=== PATIENT | male | born 1955 | race Caucasian/White ===

== ENCOUNTER 2016-08-20 14:11 | Inpatient (IN) | payer OTHER ==
[2016-08-20] MEDS ORDERED: SODIUM CHLORIDE 0.9% 500 ML IV STA (17:08)
[2016-08-20] MEDS ORDERED: MORPHINE SULFATE 2 MG/ML SYRINGE IVP STA (17:08)
[2016-08-20 18:15] LABS: Calcium 9.8 mg/dL (8.4-10.2); Total Bilirubin 1.2 mg/dL (0.2-1.3); Total Protein 5.7 g/dL (6.3-8.2)
[2016-08-20 18:18] LABS: CH 26.8; CHCM 35.1; HCT 29.8 % (39.0-53.0); HDW 2.99; Immature Gran Flag Slight; MCH 25.7 pg (25.0-35.0); MCHC 33.6 g/dL (31.0-37.0); MCV 76.5 fL (80.0-100.0); Mean Platelet Volume 7.2; Microcytosis Slight; RBC 3.89 m/uL (4.30-5.90); RDW 14.9 % (11.5-15.5); WBC (Perox) 46.69
[2016-08-20 18:20] LABS: WBC 44.3 k/uL (3.8-10.6)
[2016-08-20 18:22] LABS: Potassium 6.4 mmol/L (3.5-5.1)
[2016-08-20] MEDS ORDERED: LEVOFLOXACIN 750MG-D5W PMX 750 MG in DEXTROSE/WATER 1 150ML.BAG IVPB STA ×2 (18:25→22:17)
[2016-08-20 18:38] LABS: Appearance,Urine Turbid (Clear); Bacteria,Urine Many /hpf; Bilirubin,Urine Negative (Negative); Glucose,Urine (UA) Negative (Negative); Ketones,Urine Negative (Negative); Leukocyte Esterase,Urine Large (Negative); Nitrite,Urine Negative (Negative); PH, Urine 5.5 (5.0-8.0); Particle Count 18861; Protein,Urine 1+ (Negative); RBC,Urine 23 /hpf (0-5); Specific Gravity,Urine 1.013 (1.001-1.035); UA Billing (MACRO vs. MICRO) MICRO; WBC,Urine >182 /hpf (0-5)
[2016-08-20 18:54] LABS: Add Differential Manual Differential
[2016-08-20 18:55] LABS: Nucleated Red Blood Cells 0 /100 WBC (0-0); Polychromasia Present; Total Cells Counted 100
--- NOTE | 2016-08-20 18:55 | XR ---
EXAMINATION TYPE: XR KUB DATE OF EXAM: 08/20/2016 6:20 PM COMPARISON: 08/06/2016 HISTORY: Nausea and dizziness TECHNIQUE: 2 views FINDINGS: There is no sign of intestinal obstruction or pneumoperitoneum. Fecal pattern is normal. Th ere is mild linear density at the left lung base. There are no pathologic calcifications over the kid neys. IMPRESSION: Mild pleural reaction at the left lung base. No change compared to last exam.
[2016-08-20] MEDS ORDERED: CALCIUM GLUCONATE 1,000 MG in SODIUM CHLORIDE 0.9% 100 ML IVPB ONE (20:31)
[2016-08-20] MEDS ORDERED: DEXTROSE 50%-WATER 50 ML SYRINGE IVP STA (20:31)
[2016-08-20] MEDS ORDERED: SODIUM BICARB 8.4% 50 ML SYR (1 MEQ/ML) IV STA (20:31)
[2016-08-20] MEDS ORDERED: INSULIN REGULAR 100 UNIT/ML VIAL IV STA (20:31)
[2016-08-20] MEDS ORDERED: SODIUM POLYSTYRENE SULFONATE 15 GM/60 ML BOTTLE PO STA (20:32)
[2016-08-20 20:53] LABS: Glucose,Whole Blood 119 mg/dL (75-99)
[2016-08-20] MEDS ORDERED: ACETAMINOPHEN TAB 325 MG TAB PO PRN (22:12)
[2016-08-20] MEDS ORDERED: ONDANSETRON 4 MG/2 ML VIAL IVP PRN (22:12)
[2016-08-20] MEDS ORDERED: NALOXONE 0.4 MG/ML 1 ML VIAL IV PRN (22:12)
[2016-08-20] MEDS ORDERED: MORPHINE ORAL SOLN 20 MG/1 ML ORAL SYRINGE PO PRN (22:15)
[2016-08-20] MEDS ORDERED: MORPHINE SULFATE ER 30 MG TABLET PO PRN (22:15)
--- NOTE | 2016-08-20 22:16 | ED ---
Dizziness HPI - General Chief Complaint: Dizziness Stated Complaint: Bladder Problem,Swollen Legs/Ankles Time Seen by Provider: 08/20/16 16:45 Source: patient, RN notes reviewed Mode of arrival: wheelchair Limitations: no limitations - History of Present Illness Initial Comments: This patient is a 60-year-old man brought in by family because she has been getting progressively more weak, feeling lightheaded when he walks, and also not passing any urine since yesterday at least. The patient recently was diagnosed with metastatic cancer, and is pending the start of his cancer treatment. He had been sent home from the hospital in [place] after being admitted there, having his diagnosis made, and then having chemotherapy set up for early August. Over the past couple of days his urine has become dark and now he is not passing any. He is complaining of lower abdominal distention and pain. He also notes that he is not been able have a bowel movement in the past 2 days and is feeling somewhat constipated. MD Complaint: lightheadedness -: days(s) Timing: gradual onset Description: lightheadedness, near-syncope Severity: moderate Improves With: nothing Worsens With: movement Associated Symptoms: weakness - Related Data Home Medications Medication Instructions Recorded Confirmed Acetaminophen-Codeine 300-30mg 1 tab PO Q6HR PRN 08/20/16 08/20/16 [Tylenol w/codeine #3] Morphine Oral Soln [Roxanol Oral 20 mg PO Q3H PRN 08/20/16 08/20/16 Soln Conc 20MG/ML] Morphine Sulfate ER [Ms Contin 30 mg PO Q12HR PRN 08/20/16 08/20/16 30Mg] Previous Rx's Medication Instructions Recorded Docusate [Colace] 100 mg PO BID #100 cap 08/11/16 Polyethylene Glycol 3350 [Miralax] 17 gm PO DAILY #100 powd.pack 08/11/16 Allergies Allergy/AdvReac Type Severity Reaction Status Date / Time No Known Allergies Allergy Verified 08/20/16 20:39 Review of Systems ROS Statement: Those systems with pertinent positive or pertinent negative responses have been documented in the HPI. ROS Other: All systems not noted in ROS Statement are negative. Constitutional: Reports: chills, weakness. Denies: fever Respiratory: Denies: cough, dyspnea, wheezes Cardiovascular: Denies: chest pain, palpitations, syncope Gastrointestinal: Reports: abdominal pain, nausea, constipation. Denies: vomiting, diarrhea, melena, hematochezia Genitourinary: Reports: other (Decreased urine output and dark urine color). Denies: urgency, dysuria, frequency, hematuria, discharge Musculoskeletal: Denies: back pain Skin: Denies: rash Neurological: Reports: weakness (Diffuse). Denies: headache, numbness Past Medical History Past Medical History: COPD, Prostate Disorder Additional Past Medical History / Comment(s): Bladder cancer, mets to bone, UTI , CONSTIPATION History of Any Multi-Drug Resistant Organisms: None Reported Past Surgical History: No Surgical Hx Reported Additional Past Surgical History / Comment(s): oral surgery, BX RT SHOULDER MASS Past Anesthesia/Blood Transfusion Reactions: No Reported Reaction Past Psychological History: No Psychological Hx Reported Additional Psychological History / Comment(s): Pt lives with his son and qamar-in- law. He is independent with his ADLs. He uses no assistive device. He does not drive, family can take him to appts. Smoking Status: Current every day smoker Past Alcohol Use History: None Reported Additional Past Alcohol Use History / Comment(s): Pt started smoking as a teen and is a 1 TO 1.5 PPD smoker. He drinks alcohol but less that 14 drinks a week. Past Drug Use History: Marijuana Additional Drug Use History / Comment(s): Pt smokes marijuana daily-usually 2 joints a day. - Past Family History Father Family Medical History: Cancer, Diabetes Mellitus Additional Family Medical History / Comment(s): Father had prostate cancer. He had a hernia. He at the age of 80yrs. Mother Family Medical History: Myocardial Infarction ([place]) Additional Family Medical History / Comment(s): Mother of a massive [place] at the age of 74yrs General Exam Limitations: no limitations General appearance: alert Head exam: Present: atraumatic, normocephalic Eye exam: Present: normal appearance. Absent: scleral icterus, conjunctival injection ENT exam: Present: mucous membranes dry Neck exam: Present: normal inspection, full ROM Respiratory exam: Present: normal lung sounds bilaterally. Absent: respiratory distress, wheezes, rales, rhonchi, stridor Cardiovascular Exam: Present: regular rate, normal rhythm, normal heart sounds. Absent: systolic murmur, diastolic murmur, rubs, gallop GI/Abdominal exam: Present: distended, tenderness (There is suprapubic fullness and tenderness), guarding (Suprapubic), hypoactive bowel sounds. Absent: rebound, rigid, normal bowel sounds, pulsatile mass, hernia Extremities exam: Present: normal inspection, normal capillary refill, pedal edema. Absent: calf tenderness Back exam: Present: normal inspection. Absent: CVA tenderness (R), CVA tenderness (L) Neurological exam: Present: alert. Absent: motor sensory deficit Skin exam: Present: warm, dry, intact, normal color. Absent: rash Course Vital Signs 08/20/16 08/20/16 08/20/16 14:35 18:51 20:19 Temperature 96.9 F L 97.8 F Pulse Rate 99 67 96 Respiratory 18 18 16 Rate Blood Pressure 109/63 111/65 106/56 O2 Sat by Pulse 95 95 98 Oximetry 08/20/16 08/20/16 21:08 23:11 Temperature 97.9 F 97.9 F Pulse Rate 106 H 102 H Respiratory 16 16 Rate Blood Pressure 123/68 123/67 O2 Sat by Pulse 95 96 Oximetry Medical Decision Making - Medical Decision Making Patient is 60-year-old man with recently diagnosed metastatic cancer. After going home from the hospital he appears to have developed moderately severe dehydration. Labs support this and show acute renal failure with hyponatremia and hyperkalemia. There is also urinary tract infection with marked leukocytosis. Patient will be started on broad-spectrum antibiotics, IV hydration, case discussed with the hospitalist group and will have admission with nephrology consultation. Did receive hyperkalemia medications. - Lab Data Result diagrams: 08/20/16 17:38 08/20/16 17:38 Lab Results 08/20/16 08/20/16 08/20/16 Range/Units 17:38 17:38 17:38 WBC 44.3 H* (3.8-10.6) k/uL RBC 3.89 L (4.30-5.90) m/uL Hgb 10.0 L (13.0-17.5) gm/dL Hct 29.8 L (39.0-53.0) % MCV 76.5 L (80.0-100.0) fL MCH 25.7 (25.0-35.0) pg MCHC 33.6 (31.0-37.0) g/dL RDW 14.9 (11.5-15.5) % Plt Count 735 H (150-450) k/uL Neutrophils % (Manual) 88.0 % Band Neutrophils % 3.0 % Lymphocytes % (Manual) 3.0 % Monocytes % (Manual) 5.0 % Metamyelocytes % 1.0 % Neutrophils # (Manual) 40.3 H (1.3-7.7) k/uL Lymphocytes # (Manual) 1.3 (1.0-4.8) k/uL Monocytes # (Manual) 2.2 H (0-1.0) k/uL Nucleated RBCs 0 (0-0) /100 WBC Polychromasia Present Microcytosis Slight Sodium 119 L* (137-145) mmol/L Potassium 6.4 H* (3.5-5.1) mmol/L Chloride 86 L (98-107) mmol/L Carbon Dioxide 17 L (22-30) mmol/L Anion Gap 16 mmol/L BUN 110 H* (9-20) mg/dL Creatinine 2.90 H (0.66-1.25) mg/dL Est GFR (MDRD) Af Amer 27 (>60 ml/min/1.73 sqM) Est GFR (MDRD) Non-Af 22 (>60 ml/min/1.73 sqM) Glucose 98 (74-99) mg/dL POC Glucose (mg/dL) (75-99) mg/dL POC Glu Silk Screen Layout Drafter ID Plasma Lactic Acid Jalen 1.2 (0.7-2.0) mmol/L Calcium 9.8 (8.4-10.2) mg/dL Total Bilirubin 1.2 (0.2-1.3) mg/dL AST 57 (17-59) U/L ALT 43 (21-72) U/L Alkaline Phosphatase 187 H (38-126) U/L Total Protein 5.7 L (6.3-8.2) g/dL Albumin 2.9 L (3.5-5.0) g/dL Urine Color Urine Appearance (Clear) Urine pH (5.0-8.0) Ur Specific [place] (1.001-1.035) Urine Protein (Negative) Urine Glucose (UA) (Negative) Urine Ketones (Negative) Urine Blood (Negative) Urine Nitrate (Negative) Urine Bilirubin (Negative) Urine Urobilinogen (<2.0) mg/dL Ur Leukocyte Esterase (Negative) Urine RBC (0-5) /hpf Urine WBC (0-5) /hpf Urine WBC Clumps (None) /hpf Urine Bacteria (None) /hpf Urine Yeast (Budding) (None) /hpf 08/20/16 08/20/16 Range/Units 18:25 20:52 WBC (3.8-10.6) k/uL RBC (4.30-5.90) m/uL Hgb (13.0-17.5) gm/dL Hct (39.0-53.0) % MCV (80.0-100.0) fL MCH (25.0-35.0) pg MCHC (31.0-37.0) g/dL RDW (11.5-15.5) % Plt Count (150-450) k/uL Neutrophils % (Manual) % Band Neutrophils % % Lymphocytes % (Manual) % Monocytes % (Manual) % Metamyelocytes % % Neutrophils # (Manual) (1.3-7.7) k/uL Lymphocytes # (Manual) (1.0-4.8) k/uL Monocytes # (Manual) (0-1.0) k/uL Nucleated RBCs (0-0) /100 WBC Polychromasia Microcytosis Sodium (137-145) mmol/L Potassium (3.5-5.1) mmol/L Chloride (98-107) mmol/L Carbon Dioxide (22-30) mmol/L Anion Gap mmol/L BUN (9-20) mg/dL Creatinine (0.66-1.25) mg/dL Est GFR (MDRD) Af Amer (>60 ml/min/1.73 sqM) Est GFR (MDRD) Non-Af (>60 ml/min/1.73 sqM) Glucose (74-99) mg/dL POC Glucose (mg/dL) 119 H (75-99) mg/dL POC Glu Silk Screen Layout Drafter ID Rain Topete Plasma Lactic Acid Jalen (0.7-2.0) mmol/L Calcium (8.4-10.2) mg/dL Total Bilirubin (0.2-1.3) mg/dL AST (17-59) U/L ALT (21-72) U/L Alkaline Phosphatase (38-126) U/L Total Protein (6.3-8.2) g/dL Albumin (3.5-5.0) g/dL Urine Color Yellow Urine Appearance Turbid (Clear) Urine pH 5.5 (5.0-8.0) Ur Specific [place] 1.013 (1.001-1.035) Urine Protein 1+ H (Negative) Urine Glucose (UA) Negative (Negative) Urine Ketones Negative (Negative) Urine Blood Large H (Negative) Urine Nitrate Negative (Negative) Urine Bilirubin Negative (Negative) Urine Urobilinogen 2.0 (<2.0) mg/dL Ur Leukocyte Esterase Large H (Negative) Urine RBC 23 H (0-5) /hpf Urine WBC >182 H (0-5) /hpf Urine WBC Clumps Many H (None) /hpf Urine Bacteria Many H (None) /hpf Urine Yeast (Budding) Moderate H (None) /hpf Critical Care Time Critical Care Time: Yes (40 minutes) Disposition Clinical Impression: Hyperkalemia, Hyponatremia, Acute renal failure Disposition: ADMITTED IP TO THIS [facility] Condition: Serious
[2016-08-20] MEDS ORDERED: PIPERACILLIN-TAZOBACTAM 3.375 GM in DEXTROSE/WATER 1 50ML.BAG IVPB STA (22:17)
[2016-08-20] MEDS: SODIUM CHLORIDE 0.9% 1,000 ML IV SCH (23:13)
[2016-08-21 00:13] VITALS: BMI 24.5
[2016-08-21] MEDS: SODIUM CHLORIDE 0.9% 1,000 ML IV SCH ×3 (05:35→17:05)
[2016-08-21 07:11] LABS: Basophils # (A) 0.1 k/uL (0-0.2); Basophils % (A) 0 %; CH 26.3; CHCM 33.5; Eosinophils % (A) 0 %; HCT 25.8 % (39.0-53.0); HDW 3.09; Immature Gran Flag Slight; Luc # (Auto) 0.28; Luc % (Auto) 1; Lymphocytes # (A) 0.3 k/uL (1.0-4.8); Lymphocytes % (A) 1 %; MCHC 33.1 g/dL (31.0-37.0); MCV 78.7 fL (80.0-100.0); Mean Platelet Volume 6.8; Monocytes # (A) 1.2 k/uL (0-1.0); Monocytes % (A) 4 %; Neutrophils % (A) 94 %; RBC 3.28 m/uL (4.30-5.90); RDW 14.9 % (11.5-15.5); WBC (Perox) 33.48
[2016-08-21 07:17] LABS: HGB 8.5 gm/dL (13.0-17.5)
[2016-08-21 07:57] LABS: ALT 42 U/L (21-72); AST 58 U/L (17-59); Alkaline Phosphatase 161 U/L (38-126); Anion Gap 9 mmol/L; Blood Urea Nitrogen 60 mg/dL (9-20); Calcium 9.2 mg/dL (8.4-10.2); Carbon Dioxide 24 mmol/L (22-30); Chloride 93 mmol/L (98-107); Glucose 86 mg/dL (74-99); Non-African American GFR(MDRD) >60 (>60 ml/min/1.73 sqM); Potassium 4.3 mmol/L (3.5-5.1); Sodium 126 mmol/L (137-145); Total Bilirubin 0.9 mg/dL (0.2-1.3); Total Protein 4.9 g/dL (6.3-8.2)
[2016-08-21] MEDS: PIPERACILLIN-TAZOBACTAM 3.375 GM in DEXTROSE/WATER 1 50ML.BAG IVPB SCH ×2 (08:45→17:05)
[2016-08-21] MEDS: POLYETHYLENE GLYCOL 3350 17 GM POWD.PACK PO SCH (08:51)
[2016-08-21] MEDS: DOCUSATE 100 MG CAP PO SCH ×2 (08:51→20:54)
--- NOTE | 2016-08-21 08:53 | P.NPCON ---
History of Present Illness - Reason for Consult acute renal failure, hyponatremia - History of Present Illness Patient is a 60-year-old male who was brought in by the family as he had been weak and in unable to urinate. He states he was diagnosed with bladder cancer about 2 weeks ago and has had bladder surgery. He had difficulty in passing urine and was readmitted after the surgery. He was subsequently discharged and brought back to the ER now. Currently he has an indwelling Arthur catheter and has had good urine output. Patient denies any prior history of kidney diseases. Serum sodium was at 119 and potassium was at 6.4 on admission with a creatinine of 2.9. Patient is maintained on normal saline his sodium was, up to 126 potassium is down to 4.3 and serum creatinine at 1.2 mg/dL now. Review of Systems As per HPI other systems negative Past Medical History Past Medical History: COPD, Prostate Disorder Additional Past Medical History / Comment(s): Bladder cancer, mets to bone, UTI , CONSTIPATION History of Any Multi-Drug Resistant Organisms: None Reported Past Surgical History: No Surgical Hx Reported Additional Past Surgical History / Comment(s): oral surgery, BX RT SHOULDER MASS Past Anesthesia/Blood Transfusion Reactions: No Reported Reaction Past Psychological History: No Psychological Hx Reported Additional Psychological History / Comment(s): Pt lives with his son and qamar-in- law. He is independent with his ADLs. He uses no assistive device. He does not drive, family can take him to appts. Smoking Status: Current every day smoker Past Alcohol Use History: None Reported Additional Past Alcohol Use History / Comment(s): Pt started smoking as a teen and is a 1 TO 1.5 PPD smoker. He drinks alcohol but less that 14 drinks a week. Past Drug Use History: Marijuana Additional Drug Use History / Comment(s): Pt smokes marijuana daily-usually 2 joints a day. - Past Family History Father Family Medical History: Cancer, Diabetes Mellitus Additional Family Medical History / Comment(s): Father had prostate cancer. He had a hernia. He at the age of 80yrs. Mother Family Medical History: Myocardial Infarction ([place]) Additional Family Medical History / Comment(s): Mother of a massive [place] at the age of 74yrs Medications and Allergies Home Medications Medication Instructions Recorded Confirmed Type Acetaminophen-Codeine 300-30mg 1 tab PO Q6HR PRN 08/20/16 08/20/16 History [Tylenol w/codeine #3] Morphine Oral Soln [Roxanol Oral 20 mg PO Q3H PRN 08/20/16 08/20/16 History Soln Conc 20MG/ML] Morphine Sulfate ER [Ms Contin 30 mg PO Q12HR PRN 08/20/16 08/20/16 History 30Mg] Allergies Allergy/AdvReac Type Severity Reaction Status Date / Time No Known Allergies Allergy Verified 08/20/16 20:39 Physical Exam Vitals: Vital Signs Temp Pulse Pulse Resp BP BP Pulse Ox 08/21/16 04:00 97.4 F L 102 H 18 110/60 94 L 08/21/16 00:05 98.4 F 105 H 18 118/56 94 L 08/20/16 23:45 98.4 F 105 H 18 118/56 94 L 08/20/16 23:11 97.9 F 102 H 16 123/67 96 Intake and Output 08/20/16 08/21/16 08/21/16 22:59 06:59 14:59 Output Total 5525 Balance -5525 Output: Urine 5525 Uretheral (Arthur) 1900 Other: Voiding Method Indwelling Catheter Weight 61.5 kg On examination patient is comfortable awake alert oriented 3. He is not in any acute distress. Blood pressure is 110/60 heart rate 10 2/m Examination of the heart S1 and S2 Examination lungs bilateral breath sounds are heard Abdomen is soft minimal tenderness is noted Examination lower extremities shows no evidence of edema. BAND SAW OPERATOR CAKE CUTTING exam is grossly intact. Patient is able to move all 4 extremities. Results - Lab Results Most recent lab results Calcium 9.2 mg/dL (8.4-10.2) 08/21/16 06:24 08/21/16 06:24 08/21/16 06:24 Assessment and Plan Plan: Assessment 1. Acute kidney injury secondary to obstructive uropathy and a prerenal component as well, currently significantly improved continue with IV fluids for now 2. Hyponatremia most likely hypovolemic as well as a component of hyponatremia from recent bladder surgery however we do not have any prior labs available for comparison. Patient is maintained on normal saline and his serum sodium has improved to 126. At this time we can continue with the normal saline infusion. I will check a random urine sodium and a urine osmolality along with a TSH. 3. Hyperkalemia associated with acute kidney injury and urine retention currently improved 4. Urine retention status post Arthur catheter placement with good urine output currently. 5. Bladder cancer with recent diagnosis is status post recent surgery about a week ago. I believe patient has seen the urologist out of town. Plan Continue normal saline and repeat labs this evening, continue with Arthur catheter. Check random urine sodium and urine osmolality along with TSH Thank you for this consultation we'll continue to follow the patient with you during his hospitalization
[2016-08-21 10:44] LABS: Manual Review Performed; Target Cells Present; Toxic Granulation Present
[2016-08-21] MEDS: LEVOFLOXACIN 750MG-D5W PMX 750 MG in DEXTROSE/WATER 1 150ML.BAG IVPB SCH (11:09)
[2016-08-22] MEDS: SODIUM CHLORIDE 0.9% 1,000 ML IV SCH ×3 (01:13→11:44)
[2016-08-22] MEDS: PIPERACILLIN-TAZOBACTAM 3.375 GM in DEXTROSE/WATER 1 50ML.BAG IVPB SCH ×3 (01:13→18:53)
[2016-08-22 06:48] LABS: CH 27.2; CHCM 33.6; HCT 27.7 % (39.0-53.0); HDW 3.23; HGB 8.8 gm/dL (13.0-17.5); Immature Gran Flag Marked; MCH 25.8 pg (25.0-35.0); MCHC 31.8 g/dL (31.0-37.0); MCV 81.2 fL (80.0-100.0); Mean Platelet Volume 7.5; RBC 3.41 m/uL (4.30-5.90); RDW 15.1 % (11.5-15.5); WBC (Perox) 31.41
[2016-08-22 07:02] LABS: Anion Gap 7 mmol/L; Blood Urea Nitrogen 21 mg/dL (9-20); Calcium 9.1 mg/dL (8.4-10.2); Carbon Dioxide 29 mmol/L (22-30); Chloride 97 mmol/L (98-107); Glucose 100 mg/dL (74-99); Non-African American GFR(MDRD) >60 (>60 ml/min/1.73 sqM); Potassium 3.2 mmol/L (3.5-5.1); Sodium 133 mmol/L (137-145)
[2016-08-22 07:11] LABS: WBC 29.4 k/uL (3.8-10.6)
[2016-08-22 08:21] LABS: Add Differential Manual Differential
[2016-08-22 08:25] LABS: Band Neutrophils % 4.5 %; Manual Review Performed; Metamyelocytes % 2.5 %; Nucleated Red Blood Cells 0 /100 WBC (0-0); Target Cells Present; Total Cells Counted 200
[2016-08-22] MEDS: DOCUSATE 100 MG CAP PO SCH ×2 (09:45→21:42)
[2016-08-22] MEDS: POLYETHYLENE GLYCOL 3350 17 GM POWD.PACK PO SCH (09:45)
[2016-08-22] MEDS ORDERED: POTASSIUM CHLORIDE ER 20 MEQ TAB.ER PO STA (11:36)
--- NOTE | 2016-08-22 12:39 | HP ---
DATE OF ADMISSION: CHIEF COMPLAINT: Generalized weakness and unable to urinate. HISTORY OF PRESENT ILLNESS: Mr. Cooper is a 60-year-old male with a known diagnosis of bladder cancer, status post surgery the first week of July 2016, came to the hospital with complaints of abdominal pain and leg swelling and also unable to urinate. Patient apparently has not been eating well and family brought him to the hospital and is progressively getting weak, lightheaded and unable to urinate. Patient was diagnosed with metastatic bladder cancer, status post surgery and also the patient's urine for the past few days became dark and was unable urinate after that. Patient was found to have acute urinary retention, which improved with Arthur catheter placement and also patient was hyperkalemic and hyponatremic on admission. Nephrology has been consulted. Currently, patient denied any complaints of chest pain or short of breath. Abdominal pain, improved now. Denied any nausea, abdominal pain. No diarrhea. REVIEW OF SYSTEMS: CONSTITUTIONAL: No fever. No chills. RESPIRATORY: No cough or sputum production. CARDIOVASCULAR: No chest pain. No short of breath. ABDOMEN: No nausea or vomiting. Patient does have distention. GENITOURINARY: Negative. ENDOCRINE: Negative. SKIN: Negative. All other fourteen-point review of system negative except as above. Past medical history includes COPD, prostate disorder, bladder cancer, mets to bone, constipation. PAST SURGICAL HISTORY: Oral surgery, right shoulder mass biopsy and bladder surgery. SOCIAL HISTORY: Patient lives with his son and [id number]. Currently an everyday smoker, started at 16 and is 1 to 1-1/2 pack per day. He drinks alcohol but less than 4 drinks a week. Patient has history of marijuana. Patient smokes marijuana daily usually 2 joints a day. FAMILY HISTORY: Father had prostate cancer, diabetes mellitus. Mother had an AR and of massive AR at 74-years. Home medication include: Tylenol #3, morphine oral solution and morphine sulfate ER. ALLERGIES: No known drug allergies. PHYSICAL EXAMINATION: A 60-year-old male lying in the bed, awake, alert, appears to be lethargic and drowsy. VITALS: Blood pressure is 116/64, pulse is 90, respirations 20, temperature afebrile, pulse ox 94% on 2-L nasal cannula. HEENT: Atraumatic, normocephalic. Neck is supple. No JVD. CVS: S1, S2 heard. No murmur, no gallop. LUNGS: Bilateral air entry is present. Decreased breath sounds basally. ABDOMEN: Distended. Bowel sounds are present. Nontender. No guarding or rigidity. COMPUTER INFORMATION SCIENCE PROFESSOR: Awake, alert, oriented, x3, appears to be no focal deficit. EXTREMITIES: Bilateral lower extremity ( ) pulses palpable bilaterally. No clubbing or cyanosis. PSYCHIATRIC: Cooperative. LABORATORY DATA: WBC 44.3, hemoglobin 10.0, platelets 735. Sodium 119, potassium 6.4, chloride 86, BUN 110, creatinine 2.9, alk phos 187, TSH 2.1, albumin 2.9. UA showed large leukocyte esterase and greater than 180 WBC and bacteria. KUB x-ray, mild pleural reaction of the left lung base. No change compared to last exam. IMPRESSION: 1. Acute kidney injury, most likely obstructive uropathy and acute urinary retention. 2. Acute urinary retention resolved with Arthur catheter placement. 3. Hyperkalemia secondary to acute kidney injury. 4. Hyponatremia most likely hypovolemic hyponatremia and recent history of bladder surgery, improved with normal saline to 126 today. 5. History of bladder cancer, status post surgery and metastatic. Patient will be undergoing chemotherapy in August as scheduled. 6. Leukocytosis, possible urinary tract infection, improving now. 7. Reactive thrombocytosis. 8. Normocytic anemia. 9. Hypoalbuminemia with moderate to severe protein calorie malnutrition. 10. History of constipation. 11. Chronic obstructive pulmonary disease, stable. DISCUSSION AND PLAN: A 60-year-old male admitted to the hospital with acute urinary retention along with acute kidney injury and hyperkalemia with recent history of bladder surgery and metastatic bladder cancer. Patient will be continued on IV fluids and maintain the Arthur catheter. Continue with antibiotics and Nephrology is following this patient. Renal function is improving as well as hyperkalemia. Obstructive uropathy has been resolved after placing Arthur catheter placement. Agree with current management. Prognosis is guarded. Further recommendations based on the clinical course.
--- NOTE | 2016-08-22 14:27 | PN ---
Patient is seen for follow-up for hyponatremia and acute kidney injury along with hyperkalemia. Patient had significant urine retention which has improved now with the Arthur catheter placement. Patient continues to have some degree of hematuria. Overall, he states he is feeling much better and wants to go home. His serum sodium today is up to 133 and potassium is actually low at 3.2. On examination, blood pressure is 110/60, heart rate 97 per minute. He is afebrile. Examination of the heart S1 and S2. Examination of the lungs: Bilateral breath sounds are heard. ABDOMEN: Soft, nontender. Examination of lower extremities shows no significant edema. FOREIGN EXCHANGE STUDENT COORDINATOR exam is grossly intact. Labs show hemoglobin 8.8 g/dL, sodium 133, potassium 3.2, serum creatinine at 0.5 mg/dL. ASSESSMENT: 1. Acute kidney injury secondary to obstructive uropathy. Urine retention currently improved with serum creatinine going down from 2.9 to 0.5 mg/dL today. 2. Hyponatremia, partly hypovolemic and also from recent bladder surgery and also possibly from recent multiple bladder surgeries. Currently the sodium level is up to 133. Patient is maintained on normal saline. 3. Hyperkalemia on initial admission. Now the potassium is low as the renal function has improved. We will give him a dose of potassium chloride at 40 mEq p.o. x1. 4. Anemia, multifactorial, associated with significant hematuria. Hemoglobin is now at 8.8 g/dL. We can continue to monitor that for now. PLAN: Continue normal saline, give potassium 40 mEq p.o. x1. Repeat labs in a.m. Possible discharge soon. Patient is stable for discharge from nephrology standpoint. He needs to follow up with urology as outpatient.
[2016-08-22] MEDS: LEVOFLOXACIN 750MG-D5W PMX 750 MG in DEXTROSE/WATER 1 150ML.BAG IVPB SCH (15:59)
[2016-08-23] MEDS: SODIUM CHLORIDE 0.9% 1,000 ML IV SCH ×2 (00:19→12:53)
[2016-08-23] MEDS: PIPERACILLIN-TAZOBACTAM 3.375 GM in DEXTROSE/WATER 1 50ML.BAG IVPB SCH ×2 (00:19→08:59)
[2016-08-23 06:49] LABS: CH 26.6; CHCM 33.4; HCT 27.9 % (39.0-53.0); HDW 3.33; Immature Gran Flag Marked; MCH 25.9 pg (25.0-35.0); MCHC 32.3 g/dL (31.0-37.0); RBC 3.49 m/uL (4.30-5.90); RDW 15.3 % (11.5-15.5); WBC (Perox) 45.44
[2016-08-23 06:55] LABS: WBC 41.2 k/uL (3.8-10.6)
[2016-08-23 07:08] LABS: Anion Gap 7 mmol/L; Blood Urea Nitrogen 19 mg/dL (9-20); Calcium 9.1 mg/dL (8.4-10.2); Carbon Dioxide 26 mmol/L (22-30); Chloride 100 mmol/L (98-107); Glucose 108 mg/dL (74-99); Non-African American GFR(MDRD) >60 (>60 ml/min/1.73 sqM); Potassium 3.4 mmol/L (3.5-5.1); Sodium 133 mmol/L (137-145)
[2016-08-23 08:56] LABS: Add Differential Manual Differential
[2016-08-23 08:58] LABS: Band Neutrophils % 5.5 %; Manual Review Performed; Metamyelocytes % 4.5 %; Myelocytes % 4.5 %; Nucleated Red Blood Cells 0 /100 WBC (0-0); Promyelocytes % 0.5 %; Total Cells Counted 200; Toxic Granulation Present
[2016-08-23] MEDS: POLYETHYLENE GLYCOL 3350 17 GM POWD.PACK PO SCH (09:00)
[2016-08-23] MEDS: DOCUSATE 100 MG CAP PO SCH (09:00)
[2016-08-23] MEDS: LEVOFLOXACIN 750MG-D5W PMX 750 MG in DEXTROSE/WATER 1 150ML.BAG IVPB SCH (09:59)
[2016-08-23 14:35] VITALS: RESP 16
[2016-08-23 14:39] VITALS: BP 109/52; PULSE 90; TEMP 97.9
[2016-08-24] MEDS ORDERED: LEVOFLOXACIN 750 MG TAB PO SCH (09:00)
--- NOTE | 2016-08-24 12:49 | PN ---
DATE OF SERVICE: 08/22/2016 INTERVAL HISTORY: Mr. Cooper is a 60-year-old male with known history of recent diagnosis of bladder cancer, status post surgery in the first week of July admitted to the hospital with abdominal pain, leg swelling and unable to urinate. Patient was found to have obstructive uropathy and Arthur cath was placed. Currently his hyperkalemia and acute kidney injury did improve. Patient is very much improved. Patient denied any abdominal pain now. No fever. No chills. No acute overnight issues. Nephrology is following this patient. REVIEW OF SYSTEMS: CONSTITUTIONAL: No fever. No chills. RESPIRATORY: No cough or sputum production. CARDIOVASCULAR: No chest pain or short of breath. ABDOMEN: No nausea, vomiting or abdominal pain. GENITOURINARY: Negative. ( ) PSYCHIATRY: Negative. SKIN: Negative. All other fourteen point review of systems negative except as above. CURRENT MEDICATIONS: Reviewed. PHYSICAL EXAMINATION: A 60-year-old male lying in bed, awake, alert, oriented x3 appears to be in no apparent distress. VITALS: Blood pressure is 116/70, pulse is 98, respiratory rate 14, temperature afebrile, pulse ox 92% on room air. Laboratory data reviewed. HEENT: Atraumatic, normocephalic. LABORATORY DATA: WBC 29.4, hemoglobin 8.8, platelets 622. Sodium 133, potassium 3.2, chloride 97, bicarb is 29, BUN 21, creatinine 0.5. C. diff toxin is negative. IMPRESSION: 1. Acute kidney injury most likely obstructive uropathy and acute urinary retention, improved now. 2. Status post Arthur catheter placement. 3. Hyperkalemia secondary to acute kidney injury, resolved. 4. Hyponatremia most likely hypovolemic hyponatremia, resolved now. 5. History of bladder cancer, status post surgery and is metastatic, currently undergoing chemotherapy in August as scheduled. 6. Significant leukocytosis. 7. Reactive thrombocytosis. 8. Normocytic anemia. 9. Hypoalbuminemia with moderate to severe protein calorie malnutrition. 10. History of constipation. 11. History chronic obstructive pulmonary disease, stable. DISCUSSION AND PLAN: A 60-year-old male was admitted to the hospital with acute kidney injury and urinary retention, which is much improved now. The patient is currently on Arthur catheter. Continue the antibiotics in the form of levofloxacin. Patient denied any fever, chills. No acute overnight issues. Anticipate discharge in the next 24-hours with more clinical improvement. Follow with Oncology Clinic.
--- NOTE | 2016-08-24 22:35 | DS ---
DATE OF ADMISSION: 08/20/2016 DATE OF DISCHARGE: 08/23/2016 DISCHARGE DIAGNOSES: 1. Acute kidney injury, most likely obstructive uropathy, resolved now. 2. Acute urinary retention with Arthur catheter placement. 3. Hyperkalemia secondary to acute kidney injury, resolved. 4. Hyponatremia secondary to volume depletion, improved with IV fluids. 5. History of bladder cancer, status post surgery and metastatic; currently scheduled for chemotherapy in August. 6. Significant leukocytosis, likely related to metastatic cancer. Patient does not have any clinical signs of infection. 7. Reactive thrombocytosis. 8. Normocytic anemia. 9. Hypoalbuminemia with moderate to severe protein-calorie malnutrition. 10. History of constipation. 11. Chronic obstructive pulmonary disease, stable. HOSPITAL COURSE: [id number] male admitted to the hospital with abdominal pain and abdominal distention; was found to have acute urinary retention most likely related to bladder cancer and outlet obstruction. Patient was placed on Arthur catheter. Renal function is at baseline. Hyperkalemia and hyponatremia are resolved. Patient was continued on antibiotics. Patient does have significant leukocytosis but no clinical signs of infection; most likely secondary to metastatic bladder cancer. Patient was continued on Arthur catheter and recommended to follow with the urology clinic in the next one week for further elevation. Otherwise, patient is stable to be discharged home. Patient was seen by Nephrology as well. PHYSICAL EXAMINATION: A 60-year-old male lying in bed comfortably. Awake, alert, oriented x3. No apparent distress. VITALS: Blood pressure is 109/52. Pulse is 90, respiration 16, temperature afebrile, pulse ox 93% on room air. Laboratory data reviewed. WBC count is 41.2, platelets 632; sodium 133, potassium 3.4. Discharge physical examination done. Discharge medications include: 1. Docusate 100 mg p.o. b.i.d. p.r.n. for constipation. 2. MiraLax 17 grams p.o. daily p.r.n. for constipation. 3. Tylenol No. 3 one tablet q.6 hourly p.r.n. for pain. 4. Morphine oral solution 20 mg p.o. q.3 hours p.r.n. for pain. 5. Morphine sulfate ER 30 mg p.o. q.12 hours p.r.n. for pain. 6. Levofloxacin 500 mg p.o. daily for 5 days. Patient will be discharged home in stable condition. Activity as tolerated. Heart-healthy diet. Follow up with Dr. Valentin in one week. Follow up with primary care physician in 1 to 2 days. Follow up with oncologist for chemotherapy. Activity as tolerated.
== END 2016-08-23 16:06 | disposition home health service (06) | DRG 682 ==
LOC: EC 14:11 → 6SEL 22:12
PROVIDERS: ADMIT Hospitalist; ATTEND Hospitalist
DX: N17.9 Acute kidney failure, unspecified (principal); E43 Unspecified severe protein-calorie malnutrition; C79.51 Secondary malignant neoplasm of bone; N39.0 Urinary tract infection, site not specified; E87.1 Hypo-osmolality and hyponatremia; C67.9 Malignant neoplasm of bladder, unspecified; E86.0 Dehydration; D47.3 Essential (hemorrhagic) thrombocythemia; N13.9 Obstructive and reflux uropathy, unspecified; E86.1 Hypovolemia; D64.9 Anemia, unspecified; E87.5 Hyperkalemia; F12.90 Cannabis use, unspecified, uncomplicated; F17.200 Nicotine dependence, unspecified, uncomplicated; J44.9 Chronic obstructive pulmonary disease, unspecified; R31.9 Hematuria, unspecified; Z79.899 Other long term (current) drug therapy; Z68.23 Body mass index [BMI] 23.0-23.9, adult; Z82.49 Family history of ischemic heart disease and other diseases of the circulatory system
CPT/HCPCS: 36415; 51702; 74000; 80048; 80053; 80299; 81001; 83605; 83935; 84300; 84443; 85025; 87324; 96361; 96365; 96366; 96367; 96375; 99291

== ENCOUNTER 2016-08-23 18:26 | Inpatient (IN) | payer OTHER ==
[2016-08-23] MEDS ORDERED: SODIUM CHLORIDE 0.9% 1,000 ML IV STA ×2 (18:35→22:12)
[2016-08-23] MEDS ORDERED: RX INFO: IV CONTRAST WAS GIVEN 1 EACH MISC MISCELLANE PRN (18:36)
--- NOTE | 2016-08-23 18:40 | ED ---
General Adult HPI - General Chief complaint: Syncope Stated complaint: Syncope Time Seen by Provider: 08/23/16 18:29 Source: patient, EMS, RN notes reviewed Mode of arrival: EMS Limitations: no limitations - History of Present Illness Initial comments: Patient is a pleasant 60-year-old male presenting to the emergency department with generalized weakness. Patient was recently admitted to the hospital. Patient was found to have bladder cancer with metastasis. Patient did have a biopsy of his right clavicle region. Patient did go home today. Patient felt weak all over. Patient did have a syncopal episode well in the bathroom. Patient states he feels weak and fatigued. - Related Data Home Medications Medication Instructions Recorded Confirmed Acetaminophen-Codeine 300-30mg 1 tab PO Q6HR PRN 08/20/16 08/23/16 [Tylenol w/codeine #3] Morphine Oral Soln [Roxanol Oral 20 mg PO Q3H PRN 08/20/16 08/23/16 Soln Conc 20MG/ML] Morphine Sulfate ER [Ms Contin] 30 mg PO Q12HR PRN 08/20/16 08/23/16 Previous Rx's Medication Instructions Recorded Docusate [Colace] 100 mg PO BID #100 cap 08/11/16 Polyethylene Glycol 3350 [Miralax] 17 gm PO DAILY #100 powd.pack 08/11/16 Levofloxacin [Levaquin] 500 mg PO DAILY 5 Days 08/23/16 Allergies Allergy/AdvReac Type Severity Reaction Status Date / Time No Known Allergies Allergy Verified 08/23/16 18:31 Review of Systems ROS Statement: Those systems with pertinent positive or pertinent negative responses have been documented in the HPI. ROS Other: All systems not noted in ROS Statement are negative. Constitutional: Denies: fever Eyes: Denies: eye pain ENT: Denies: ear pain Respiratory: Denies: dyspnea Cardiovascular: Denies: chest pain Endocrine: Reports: fatigue Gastrointestinal: Denies: abdominal pain Genitourinary: Denies: dysuria Musculoskeletal: Denies: back pain Skin: Denies: rash Neurological: Reports: weakness Past Medical History Past Medical History: COPD, Prostate Disorder Additional Past Medical History / Comment(s): Bladder cancer, mets to bone, UTI , CONSTIPATION History of Any Multi-Drug Resistant Organisms: None Reported Past Surgical History: No Surgical Hx Reported Additional Past Surgical History / Comment(s): oral surgery, BX RT SHOULDER MASS Past Anesthesia/Blood Transfusion Reactions: No Reported Reaction Past Psychological History: No Psychological Hx Reported Additional Psychological History / Comment(s): Pt lives with his son and qamar-in- law. He is independent with his ADLs. He uses no assistive device. He does not drive, family can take him to appts. Smoking Status: Current every day smoker Past Alcohol Use History: None Reported Additional Past Alcohol Use History / Comment(s): Pt started smoking as a teen and is a 1 TO 1.5 PPD smoker. He drinks alcohol but less that 14 drinks a week. Past Drug Use History: Marijuana Additional Drug Use History / Comment(s): Pt smokes marijuana daily-usually 2 joints a day. - Past Family History Father Family Medical History: Cancer, Diabetes Mellitus Additional Family Medical History / Comment(s): Father had prostate cancer. He had a hernia. He at the age of 80yrs. Mother Family Medical History: Myocardial Infarction ([place]) Additional Family Medical History / Comment(s): Mother of a massive [place] at the age of 74yrs General Exam Limitations: no limitations General appearance: alert, in no apparent distress Head exam: Present: atraumatic Eye exam: Present: normal appearance, PERRL, EOMI ENT exam: Present: normal oropharynx Neck exam: Present: normal inspection Respiratory exam: Present: normal lung sounds bilaterally, other (Right clavicular region mass) Cardiovascular Exam: Present: tachycardia GI/Abdominal exam: Present: distended (Mildly distended). Absent: soft, tenderness, guarding, rebound, rigid Extremities exam: Present: pedal edema (Trace bilateral). Absent: calf tenderness Neurological exam: Present: alert, oriented X3, CN II-XII intact. Absent: motor sensory deficit Psychiatric exam: Present: normal affect, normal mood Skin exam: Absent: rash Course Vital Signs 08/23/16 08/23/16 18:28 20:04 Temperature 97.1 F L 98.4 F Pulse Rate 116 H 111 H Respiratory 20 16 Rate Blood Pressure 134/78 112/68 O2 Sat by Pulse 97 96 Oximetry EKG Findings - EKG Comments: EKG Findings:: Sinus tachycardia 1:15. SC 172. QRS 84. QT 312. QTC 431. Normal axis. Normal QRS. Normal ST-T. Medical Decision Making - Medical Decision Making Patient reexamined and resting comfortably in bed. Patient and family updated on results and plan. Case discussed in detail with practitioner Annamarie, who will admit for hospital call. Also discussed with Dr. Jack, who will consult for Dr. Avelar. Patient will be covered with antibiotics for possible urinary tract infection. Urinary tract infection is not definiteness patient has catheter in place as well as bladder cancer. Elevated white blood cell count is somewhat chronic as well. It is unclear patient meets sepsis criteria or not. Lactic acid will be ordered. - Lab Data Result diagrams: 08/23/16 19:03 08/23/16 19:03 Lab Results 08/23/16 08/23/16 08/23/16 Range/Units 18:41 19:03 19:03 WBC 51.1 H* (3.8-10.6) k/uL RBC 4.00 L (4.30-5.90) m/uL Hgb 10.2 L (13.0-17.5) gm/dL Hct 31.9 L (39.0-53.0) % MCV 79.8 L (80.0-100.0) fL MCH 25.4 (25.0-35.0) pg MCHC 31.9 (31.0-37.0) g/dL RDW 15.4 (11.5-15.5) % Plt Count 660 H (150-450) k/uL Neutrophils % (Manual) 69.5 % Band Neutrophils % 20.5 % Lymphocytes % (Manual) 2.5 % Monocytes % (Manual) 2.5 % Metamyelocytes % 4.5 % Myelocytes % 0.5 % Neutrophils # (Manual) 46.0 H (1.3-7.7) k/uL Lymphocytes # (Manual) 1.3 (1.0-4.8) k/uL Monocytes # (Manual) 1.3 H (0-1.0) k/uL Nucleated RBCs 0 (0-0) /100 WBC Toxic Granulation Present Toxic Vacuolation Present Large Platelets Present Polychromasia Present Anisocytosis (manual) Present Target Cells Present PT 14.1 H (9.0-12.0) sec INR 1.4 (<1.1) APTT 23.7 (22.0-30.0) sec Sodium (137-145) mmol/L Potassium (3.5-5.1) mmol/L Chloride (98-107) mmol/L Carbon Dioxide (22-30) mmol/L Anion Gap mmol/L BUN (9-20) mg/dL Creatinine (0.66-1.25) mg/dL Est GFR (MDRD) Af Amer (>60 ml/min/1.73 sqM) Est GFR (MDRD) Non-Af (>60 ml/min/1.73 sqM) Glucose (74-99) mg/dL POC Glucose (mg/dL) 95 (75-99) mg/dL POC Glu Petroleum Inspector ID Soheila Albert Calcium (8.4-10.2) mg/dL Magnesium (1.6-2.3) mg/dL Total Bilirubin (0.2-1.3) mg/dL AST (17-59) U/L ALT (21-72) U/L Alkaline Phosphatase (38-126) U/L Total Creatine Kinase (55-170) U/L CK-MB (CK-2) (0.0-2.4) ng/mL CK-MB (CK-2) Rel Index Troponin I (0.000-0.034) ng/mL Total Protein (6.3-8.2) g/dL Albumin (3.5-5.0) g/dL Urine Color Urine Appearance (Clear) Urine pH (5.0-8.0) Ur Specific Butler (1.001-1.035) Urine Protein (Negative) Urine Glucose (UA) (Negative) Urine Ketones (Negative) Urine Blood (Negative) Urine Nitrate (Negative) Urine Bilirubin (Negative) Urine Urobilinogen (<2.0) mg/dL Ur Leukocyte Esterase (Negative) Urine RBC (0-5) /hpf Urine WBC (0-5) /hpf Urine WBC Clumps (None) /hpf Amorphous Sediment (None) /hpf Urine Bacteria (None) /hpf Urine Mucus (None) /hpf 08/23/16 08/23/16 08/23/16 Range/Units 19:03 19:03 20:00 WBC (3.8-10.6) k/uL RBC (4.30-5.90) m/uL Hgb (13.0-17.5) gm/dL Hct (39.0-53.0) % MCV (80.0-100.0) fL MCH (25.0-35.0) pg MCHC (31.0-37.0) g/dL RDW (11.5-15.5) % Plt Count (150-450) k/uL Neutrophils % (Manual) % Band Neutrophils % % Lymphocytes % (Manual) % Monocytes % (Manual) % Metamyelocytes % % Myelocytes % % Neutrophils # (Manual) (1.3-7.7) k/uL Lymphocytes # (Manual) (1.0-4.8) k/uL Monocytes # (Manual) (0-1.0) k/uL Nucleated RBCs (0-0) /100 WBC Toxic Granulation Toxic Vacuolation Large Platelets Polychromasia Anisocytosis (manual) Target Cells PT (9.0-12.0) sec INR (<1.1) APTT (22.0-30.0) sec Sodium 135 L (137-145) mmol/L Potassium 3.2 L (3.5-5.1) mmol/L Chloride 101 (98-107) mmol/L Carbon Dioxide 25 (22-30) mmol/L Anion Gap 9 mmol/L BUN 21 H (9-20) mg/dL Creatinine 0.98 (0.66-1.25) mg/dL Est GFR (MDRD) Af Amer >60 (>60 ml/min/1.73 sqM) Est GFR (MDRD) Non-Af >60 (>60 ml/min/1.73 sqM) Glucose 99 (74-99) mg/dL POC Glucose (mg/dL) (75-99) mg/dL POC Glu Petroleum Inspector ID Calcium 9.2 (8.4-10.2) mg/dL Magnesium 1.8 (1.6-2.3) mg/dL Total Bilirubin 0.5 (0.2-1.3) mg/dL AST 38 (17-59) U/L ALT 48 (21-72) U/L Alkaline Phosphatase 180 H (38-126) U/L Total Creatine Kinase 42 L (55-170) U/L CK-MB (CK-2) 1.4 (0.0-2.4) ng/mL CK-MB (CK-2) Rel Index 3.3 Troponin I <0.012 (0.000-0.034) ng/mL Total Protein 5.2 L (6.3-8.2) g/dL Albumin 2.5 L (3.5-5.0) g/dL Urine Color Red Urine Appearance Turbid (Clear) Urine pH 6.0 (5.0-8.0) Ur Specific Butler 1.018 (1.001-1.035) Urine Protein 2+ H (Negative) Urine Glucose (UA) 1+ H (Negative) Urine Ketones Negative (Negative) Urine Blood Large H (Negative) Urine Nitrate Negative (Negative) Urine Bilirubin Negative (Negative) Urine Urobilinogen <2.0 (<2.0) mg/dL Ur Leukocyte Esterase Large H (Negative) Urine RBC >182 H (0-5) /hpf Urine WBC >182 H (0-5) /hpf Urine WBC Clumps Many H (None) /hpf Amorphous Sediment Occasional H (None) /hpf Urine Bacteria Few H (None) /hpf Urine Mucus Occasional H (None) /hpf - Radiology Data Radiology results: image reviewed (Computed tomography scan of brain with and without contrast shows no acute abnormality. Chest x-ray shows no acute pulmonary or pleural process.) Disposition Clinical Impression: Syncope, Weakness, UTI (urinary tract infection) Disposition: ADMITTED IP TO THIS HOSP Condition: Serious
[2016-08-23 18:46] LABS: Glucose,Whole Blood 95 mg/dL (75-99)
[2016-08-23 19:29] LABS: ALT 48 U/L (21-72); AST 38 U/L (17-59); Alkaline Phosphatase 180 U/L (38-126); Anion Gap 9 mmol/L; Blood Urea Nitrogen 21 mg/dL (9-20); Calcium 9.2 mg/dL (8.4-10.2); Carbon Dioxide 25 mmol/L (22-30); Chloride 101 mmol/L (98-107); Glucose 99 mg/dL (74-99); Magnesium 1.8 mg/dL (1.6-2.3); Non-African American GFR(MDRD) >60 (>60 ml/min/1.73 sqM); Potassium 3.2 mmol/L (3.5-5.1); Sodium 135 mmol/L (137-145); Total Bilirubin 0.5 mg/dL (0.2-1.3); Total Protein 5.2 g/dL (6.3-8.2)
[2016-08-23 19:33] LABS: Creatine Kinase 42 U/L (55-170)
[2016-08-23 19:35] LABS: INR 1.4 (<1.1); Partial Thromboplastin Time 23.7 sec (22.0-30.0); Prothrombin Time 14.1 sec (9.0-12.0)
[2016-08-23 19:37] LABS: CH 26.4; CHCM 33.2; HCT 31.9 % (39.0-53.0); HDW 3.35; HGB 10.2 gm/dL (13.0-17.5); Immature Gran Flag Marked; MCH 25.4 pg (25.0-35.0); MCHC 31.9 g/dL (31.0-37.0); MCV 79.8 fL (80.0-100.0); Mean Platelet Volume 8.1; RDW 15.4 % (11.5-15.5); WBC (Perox) 50.21
[2016-08-23 19:45] LABS: Creatine Kinase MB 1.4 ng/mL (0.0-2.4); Troponin I <0.012 ng/mL (0.000-0.034)
[2016-08-23 19:48] LABS: WBC 51.1 k/uL (3.8-10.6)
--- NOTE | 2016-08-23 19:54 | CT ---
EXAMINATION TYPE: CT brain wo/w con DATE OF EXAM: 08/23/2016 7:31 PM COMPARISON: NONE HISTORY: Patient complains of syncopeal fall today. Patient has history of CA. CT DLP: 1923 mGycm Automated exposure control for dose reduction was used. CONTRAST: CT scan of the head is performed without and with IV Contrast, patient injected with 100 mL of Omnipa que 300. FINDINGS: There is no evidence of hemorrhage. There is no abnormal enhancing mass or midline shift identified. The ventricles and sulci are within normal limits in size. The globes are intact and the visualize d sinuses are clear. IMPRESSION: NEGATIVE HEAD CT WITHOUT AND WITH INTRAVENOUS CONTRAST.
[2016-08-23 20:14] LABS: Add Differential Manual Differential
[2016-08-23 20:17] LABS: Band Neutrophils % 20.5 %; Metamyelocytes % 4.5 %; Myelocytes % 0.5 %; Nucleated Red Blood Cells 0 /100 WBC (0-0); Total Cells Counted 200
[2016-08-23 20:18] LABS: Polychromasia Present; Target Cells Present
[2016-08-23 20:19] LABS: Large Platelets Present; Toxic Granulation Present; Toxic Vacuolation Present
[2016-08-23 20:42] LABS: Amorphous Sediment,Urine Occasional /hpf; Appearance,Urine Turbid (Clear); Bacteria,Urine Few /hpf; Bilirubin,Urine Negative (Negative); Glucose,Urine (UA) 1+ (Negative); Ketones,Urine Negative (Negative); Leukocyte Esterase,Urine Large (Negative); Mucus,Urine Occasional /hpf; Nitrite,Urine Negative (Negative); Particle Count 49884; Protein,Urine 2+ (Negative); RBC,Urine >182 /hpf (0-5); Specific Gravity,Urine 1.018 (1.001-1.035); UA Billing (MACRO vs. MICRO) MICRO; Urobilinogen,Urine <2.0 mg/dL (<2.0); WBC,Urine >182 /hpf (0-5)
--- NOTE | 2016-08-23 21:03 | XR ---
EXAMINATION TYPE: XR chest 2V DATE OF EXAM: 08/23/2016 8:14 PM COMPARISON: August 06, 2016 HISTORY: Syncope. Patient with history of bladder carcinoma with skeletal metastatic lesions. TECHNIQUE: Frontal and lateral views of the chest are obtained. FINDINGS: There is extensive soft tissue swelling in the right supraclavicular fossa. There is no focal air space opacity, pleural effusion, or pneumothorax seen. The cardiac silhouette size is within normal limits. IMPRESSION: STABLE FINDINGS; NO ACUTE PULMONARY OR PLEURAL PROCESS.
[2016-08-23] MEDS ORDERED: LEVOFLOXACIN 500MG-D5W PMX 500 MG in DEXTROSE/WATER 1 100ML.BAG IVPB STA (21:41)
[2016-08-23] MEDS ORDERED: NALOXONE 0.4 MG/ML 1 ML VIAL IV PRN (21:46)
[2016-08-24] MEDS ORDERED: MORPHINE ORAL SOLN 20 MG/1 ML ORAL SYRINGE PO PRN (01:19)
[2016-08-24] MEDS ORDERED: MORPHINE SULFATE ER 30 MG TABLET PO PRN (01:19)
[2016-08-24] MEDS: SODIUM CHLORIDE 0.9% 1,000 ML IV SCH ×2 (01:38→08:16)
[2016-08-24 01:55] LABS: Creatine Kinase MB 1.2 ng/mL (0.0-2.4); Troponin I 0.013 ng/mL (0.000-0.034)
[2016-08-24] MEDS: DOCUSATE 100 MG CAP PO SCH ×2 (08:16→21:20)
[2016-08-24] MEDS: Acetaminophen-Codeine 300-30mg TAB PO PRN ×2 (08:16→14:52)
[2016-08-24 09:41] LABS: Creatine Kinase MB 1.2 ng/mL (0.0-2.4); Troponin I 0.029 ng/mL (0.000-0.034)
[2016-08-24 13:28] LABS: Anion Gap 10 mmol/L; Blood Urea Nitrogen 15 mg/dL (9-20); Calcium 8.6 mg/dL (8.4-10.2); Carbon Dioxide 23 mmol/L (22-30); Chloride 105 mmol/L (98-107); Glucose 90 mg/dL (74-99); Non-African American GFR(MDRD) >60 (>60 ml/min/1.73 sqM); Sodium 138 mmol/L (137-145)
[2016-08-24 13:41] LABS: Potassium 2.7 mmol/L (3.5-5.1)
[2016-08-24] MEDS ORDERED: Potassium Replacement Protocol 1 EACH MISC MISCELLANE PRN ×2 (14:15→14:24)
[2016-08-24] MEDS: POTASSIUM CHLORIDE ER 20 MEQ TAB.ER PO SCH ×3 (14:57→17:02)
[2016-08-24] MEDS ORDERED: POTASSIUM CHLORIDE 10 MEQ, LIDOCAINE 2% INJ 10 MG in SODIUM CHLORIDE 0.9% 100 ML IV SCH (15:00)
[2016-08-24 15:15] VITALS: BMI 25.0
[2016-08-24] MEDS ORDERED: POTASSIUM CHLORIDE ER 20 MEQ TAB.ER PO SCH (16:00)
--- NOTE | 2016-08-24 16:53 | P.GSCN ---
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 He had a biopsy of his clavicle and a limited resction of tumor in his bladder. Both showed squamous cell ca. I didnt do a complete resection as the tumor was too big as well as metastatic. He camme in weak. He has a trejo in place. His wbc is 50K but was in the 40s during the recent hospitalization. Review of Systems - Constitutional Reports anorexia, Reports lethargy, Reports malaise, Reports weight loss - EENT Ears, nose, mouth and throat: Reports headache Past Medical History Past Medical History: COPD, Prostate Disorder Additional Past Medical History / Comment(s): Bladder cancer, mets to bone, UTI , CONSTIPATION History of Any Multi-Drug Resistant Organisms: None Reported Past Surgical History: No Surgical Hx Reported Additional Past Surgical History / Comment(s): oral surgery, BX RT SHOULDER MASS Past Anesthesia/Blood Transfusion Reactions: No Reported Reaction Past Psychological History: No Psychological Hx Reported Additional Psychological History / Comment(s): Pt lives with his son and qamar-in- law. He is independent with his ADLs. He uses no assistive device. He does not drive, family can take him to appts. Smoking Status: Current every day smoker Past Alcohol Use History: None Reported Additional Past Alcohol Use History / Comment(s): Pt started smoking as a teen and is a 1 TO 1.5 PPD smoker. He drinks alcohol but less that 14 drinks a week. Past Drug Use History: Marijuana Additional Drug Use History / Comment(s): Pt smokes marijuana daily-usually 2 joints a day. - Past Family History Father Family Medical History: Cancer, Diabetes Mellitus Additional Family Medical History / Comment(s): Father had prostate cancer. He had a hernia. He at the age of 80yrs. Mother Family Medical History: Myocardial Infarction ([place]) Additional Family Medical History / Comment(s): Mother of a massive [place] at the age of 74yrs Medications and Allergies Home Medications Medication Instructions Recorded Confirmed Type Acetaminophen-Codeine 300-30mg 1 tab PO Q6HR PRN 08/20/16 08/23/16 History [Tylenol w/codeine #3] Morphine Oral Soln [Roxanol Oral 20 mg PO Q3H PRN 08/20/16 08/23/16 History Soln Conc 20MG/ML] Morphine Sulfate ER [Ms Contin] 30 mg PO Q12HR PRN 08/20/16 08/23/16 History Allergies Allergy/AdvReac Type Severity Reaction Status Date / Time No Known Allergies Allergy Verified 08/23/16 18:31 Surgical - Exam Vital Signs Temp Pulse Resp BP Pulse Ox 97.1 F L 116 H 20 134/78 97 08/23/16 18:28 08/23/16 18:28 08/23/16 18:28 08/23/16 18:28 08/23/16 18:28 - General chronically ill - Eyes PERRL - ENT no hearing loss - Neck trachea midline - Respiratory normal expansion, normal respiratory effort - Abdomen Abdomen: soft, non tender - Neurologic normal coordination, normal sensation - Musculoskeletal normal posture - Psychiatric oriented to time, oriented to person, oriented to place Results - Labs 08/23/16 19:03 08/24/16 13:58 Abnormal Lab Results - Last 24 Hours (Table) 08/24/16 08/24/16 Range/Units 01:02 08:14 Total Creatine Kinase 31 L 31 L (55-170) U/L Assessment and Plan Plan: Impression: Metastatic bladder ca. Weakness. Elevated wbc probably related to the cancer. Recommendations. Urologically there is nothing further that I can do. As long as he isnt bleeding I wont take him back to the OR.we discussed the status of his Trejo catheter in at present we will leave it indwelling until he is feeling better. At that point time I would give him a voiding trial. We discussed the status of his cancer. We discussed the status of the cancer in his bladder also. I will not do a resection unless we are dealing with bleeding or persistent urine retention. I talked with the family and they understand this completely.
--- NOTE | 2016-08-24 17:39 | P.CONS ---
History of Present Illness - Reason for Consult Consult date: 08/24/16 Oncology care Requesting physician: Parish Drew - Chief Complaint weakness, fall - History of Present Illness Mr. Cooper is a very pleasant male pt who was seen in initial consult in early Jul for right supraclavicular mass that had been rapidly increasing in size causing pain and decreased ROM, he had biopsy with Dr. Vargas 07/28-path revealing squamous cell carcinoma, consistent with bladder primary. CT CAP 07/26 revealed bilateral lung nodules, adrenal mass and thickened bladder. He was treated and went home only to return 08/06 with c/o abd pain. He had CT AP showing ascites and bladder thickening. He had TURBT, incomplete removal of tumor due to involvement, with Dr. Valentin 08/09, pathology confirming metastatic squamous cell, bladder primary. Dr. Morgan saw pt on 08/17 and there are plans to start chemotherapy. Pt returned 08/10 due to dizziness, abd pain and distension. He had a trejo placed with relief of his symptoms. He was sent home the 08/23 but returned within a half hour of leaving as he became dizzy and fell in the bathroom hitting his head. Pt has been counseled regarding his malignancy and chemotherapy has been discussed. Pt is laying in bed, denies fevers, states poor appetite, no cough, his abd is distended but more comfortable with the trejo in place, he has had diarrhea, none this AM, denies bleeding, he is weak. Review of Systems All systems: negative Constitutional: Reports as per HPI Past Medical History Past Medical History: Cancer, COPD, Prostate Disorder Additional Past Medical History / Comment(s): Bladder cancer, mets to bone, UTI , CONSTIPATION History of Any Multi-Drug Resistant Organisms: None Reported Past Surgical History: No Surgical Hx Reported Additional Past Surgical History / Comment(s): oral surgery, BX RT SHOULDER MASS Past Anesthesia/Blood Transfusion Reactions: No Reported Reaction Past Psychological History: No Psychological Hx Reported Additional Psychological History / Comment(s): Pt lives with his son and qamar-in- law. He is independent with his ADLs. He uses no assistive device. He does not drive, family can take him to appts. Smoking Status: Current every day smoker Past Alcohol Use History: None Reported Additional Past Alcohol Use History / Comment(s): Pt started smoking as a teen and is a 1 TO 1.5 PPD smoker. He drinks alcohol but less that 14 drinks a week. Past Drug Use History: Marijuana Additional Drug Use History / Comment(s): Pt smokes marijuana daily-usually 2 joints a day. - Past Family History Father Family Medical History: Cancer, Diabetes Mellitus Additional Family Medical History / Comment(s): Father had prostate cancer. He had a hernia. He at the age of 80yrs. Mother Family Medical History: Myocardial Infarction ([place]) Additional Family Medical History / Comment(s): Mother of a massive [place] at the age of 74yrs Medications and Allergies Home Medications Medication Instructions Recorded Confirmed Type Acetaminophen-Codeine 300-30mg 1 tab PO Q6HR PRN 08/20/16 08/23/16 History [Tylenol w/codeine #3] Morphine Oral Soln [Roxanol Oral 20 mg PO Q3H PRN 08/20/16 08/23/16 History Soln Conc 20MG/ML] Morphine Sulfate ER [Ms Contin] 30 mg PO Q12HR PRN 08/20/16 08/23/16 History Allergies Allergy/AdvReac Type Severity Reaction Status Date / Time No Known Allergies Allergy Verified 08/23/16 18:31 Physical Exam Vitals: Vital Signs Temp Pulse Pulse Resp BP BP Pulse Ox 08/24/16 15:55 20 08/24/16 15:00 97.1 F L 99 20 120/61 96 08/24/16 08:00 20 08/24/16 07:00 97.7 F 101 H 20 119/76 97 08/23/16 23:00 98.0 F 110 H 109 H 19 115/68 101/62 93 L 08/23/16 22:00 97.5 F L 101 H 18 105/62 100 Intake and Output 08/24/16 08/24/16 08/24/16 06:59 14:59 22:59 Intake Total 120 Output Total 1100 475 Balance -1100 -355 Intake: Oral 120 Output: Urine 1100 475 Other: Voiding Method Indwelling Catheter Indwelling Catheter # Voids 0 # Bowel Movements 2 1 Weight 72.575 kg Patient Weight 08/25/16 06:59 Weight 72.575 kg - Constitutional General appearance: cooperative, mild distress, thin - EENT lower teeth absent, upper denture, no thrush or ulcer Eyes: anicteric sclerae - Neck right supraclavicular mass, size of a small grapefruit, hard, fixed, biopsy incision is healed but pt states occasional drainage from the site - Respiratory Respiratory: bilateral: CTA (weak respiratory effort) - Cardiovascular Rhythm: regular Heart sounds: normal: S1, S2 Abnormal Heart Sounds: systolic murmur leg Peripheral Edema: bilateral: None - Gastrointestinal unable to palpate organomegaly General gastrointestinal: distended, normal bowel sounds, soft - Neurologic Neurologic: CNII-XII intact - Musculoskeletal Musculoskeletal: generalized weakness - Psychiatric Psychiatric: A&O x's 3, appropriate affect, intact judgment & insight Results CBC & Chem 7: 08/25/16 08:20 08/25/16 08:20 Labs: Abnormal Lab Results - Last 24 Hours (Table) 08/24/16 08/24/16 08/24/16 Range/Units 01:02 08:14 08:14 Potassium 2.7 L* (3.5-5.1) mmol/L Creatinine 0.56 L (0.66-1.25) mg/dL Total Creatine Kinase 31 L 31 L (55-170) U/L 08/24/16 Range/Units 13:58 Potassium 2.9 L* (3.5-5.1) mmol/L Creatinine (0.66-1.25) mg/dL Total Creatine Kinase (55-170) U/L Chest x-ray: report reviewed CT Scan - head: report reviewed Assessment and Plan (1) Bladder cancer Narrative/Plan: Pt had metastatic disease at presentation. Status: Acute (2) Cancer, metastatic Status: Acute Plan: Pt has met with Dr. Morgan, plans to start chemo soon, unfortunately pt has recurrent UTI. Urology report reviewed, agree with trejo remaining in place for now until pt has had some treatment for malignancy to try and minimize infection risk and trauma. Pt will be evaluated again prior to starting chemo treatment, he will need to complete abx treatment for UTI.
[2016-08-24] MEDS: LEVOFLOXACIN 500MG-D5W PMX 500 MG in DEXTROSE/WATER 1 100ML.BAG IVPB SCH (21:20)
[2016-08-25] MEDS ORDERED: Potassium Replacement Protocol 1 EACH MISC MISCELLANE PRN (00:41)
[2016-08-25] MEDS: SODIUM CHLORIDE 0.9% 1,000 ML IV SCH ×2 (01:22→15:31)
[2016-08-25] MEDS: POTASSIUM CHLORIDE 10 MEQ, LIDOCAINE 2% INJ 10 MG in SODIUM CHLORIDE 0.9% 100 ML IV SCH ×2 (01:22→02:52)
--- NOTE | 2016-08-25 06:23 | HP ---
DATE OF ADMISSION: CHIEF COMPLAINT: Syncope. HISTORY OF PRESENT ILLNESS: Mr. Cooper is a 60-year-old male with known history of bladder cancer diagnosed early July 2016 and was discharged a day after he was treated for urinary tract infection, hyperkalemia and acute kidney injury secondary to postobstructive uropathy. Patient was discharged on Arthur catheter and symptomatically felt much better at the time. Patient went home and patient had a fall. While he was going to the bathroom, he tripped on something and patient fell. The patient otherwise denied any complaints of loss of consciousness. Patient denied any sudden fall. Patient felt very weak and fatigued and lying on the floor. Otherwise, the patient denied any complaints of fever or chills. No nausea, vomiting, or abdominal pain. No fever. No chills. Patient is scheduled for chemotherapy in August. Patient is being followed by Urology and Oncology as well. REVIEW OF SYSTEMS: CONSTITUTIONAL: No fever, no chills and does have generalized weakness and malaise. RESPIRATORY: No cough or sputum production. CARDIOVASCULAR: No chest pain or shortness of breath. ABDOMEN: No nausea, vomiting or abdominal pain. GENITOURINARY: Negative. ENDOCRINE: Negative. PSYCHIATRIC: Negative. All other 14-point review of systems negative except the above. Past medical history includes COPD, prostate disorder, bladder cancer with metastasis to bones, urinary tract infection, chronic constipation. PAST SURGICAL HISTORY: Oral surgery, biopsy of right shoulder mass, bladder surgery. SOCIAL HISTORY: Patient currently every day smoker, started smoking as a teen and is a 1 to 1-1/2 packs per day. Drinks alcohol but less than 14 drinks per week. Does use marijuana daily, 2 joints a day. FAMILY HISTORY: Father had cancer and diabetes mellitus. Father had prostate cancer. He had hernia and he at the age of 80 years. Mother had myocardial infarction. Mother of massive [place] at the age of 74. ALLERGIES: No known drug allergies. Home medications include: 1. Tylenol No. 3. 2. Morphine sulfate. 3. Morphine oral solution. 4. Levofloxacin. 5. Polyethylene glycol. 6. Docusate. PHYSICAL EXAMINATION: A 60-year-old male lying on the bed comfortably. Awake, alert, oriented x3, appears to be in no apparent distress. VITALS: Blood pressure is 120/61, pulse is 99, respirations 20, temperature afebrile, pulse ox 96% on room air. HEENT: Atraumatic, normocephalic. Neck is supple. No JVD. CVS: S1, S2 heard. No murmurs, no gallop, no rub. LUNGS: Bilateral air entry is present. No wheezing. No crackles. Nonlabored breathing. ABDOMEN: Soft, nontender. Bowel sounds are present. Abdominal distention is present. A Arthur catheter in place. No blood in the urine. RAW HIDE TRIMMER: Awake, alert, oriented x3. No focal neurologic deficits. Cranial nerves grossly intact. EXTREMITIES: No edema. Pulses palpable bilaterally. No clubbing or cyanosis. PSYCHIATRIC: Cooperative. LABORATORY DATA: WBC 51.1, hemoglobin 10.2, platelets is 660. INR 1.4. Sodium 135, potassium 3.2, chloride 105, bicarbonate 23. Potassium came down to 2.7. BUN 15, creatinine 0.56. Calcium 8.6. Lactic acid was 2.3 came down to 0.9. IMPRESSION: 1. Status post mechanical fall. No complaints of pain at this time. 2. Generalized weakness. 3. Severe hypokalemia. 4. Urinary tract infection, possible. 5. ( ) leukocytosis, most likely related to metastatic bladder cancer. 6. Bladder cancer diagnosed late July 2016, status post surgery and is scheduled for chemotherapy in August 2016. 7. Reactive thrombocytosis. 8. Normocytic anemia. 9. Hypoalbuminemia with mild to moderate protein calorie malnutrition. 10. History of chronic constipation. 11. Chronic obstructive pulmonary disease. DISCUSSION AND PLAN: A 60-year-old male admitted to the hospital status post fall and currently being treated for possible urinary tract infection, ( ) leukocytosis could be secondary to metastatic bladder cancer itself. Otherwise, Oncology and Urology are following this patient. Patient is awake, oriented x3 likely ( ) resolved, will continue the IV fluids and follow up closely. Further recommendations based on the clinical course.
[2016-08-25] MEDS: DOCUSATE 100 MG CAP PO SCH ×2 (08:05→20:24)
[2016-08-25 08:48] LABS: CH 25.9; CHCM 32.5; HCT 29.3 % (39.0-53.0); HGB 9.5 gm/dL (13.0-17.5); Hypochromasia Slight; Immature Gran Flag Slight; MCH 26.2 pg (25.0-35.0); MCHC 32.6 g/dL (31.0-37.0); MCV 80.3 fL (80.0-100.0); Mean Platelet Volume 7.3; Poikilocytosis Slight; RBC 3.65 m/uL (4.30-5.90); RDW 15.6 % (11.5-15.5); WBC (Perox) 42.23
[2016-08-25 08:58] LABS: WBC 40.8 k/uL (3.8-10.6)
[2016-08-25 09:36] LABS: Add Differential Manual Differential
[2016-08-25 09:38] LABS: Manual Review Performed; Myelocytes % 2.5 %; Nucleated Red Blood Cells 0 /100 WBC (0-0); Target Cells Present; Total Cells Counted 200; Toxic Granulation Present
[2016-08-25 09:44] LABS: Anion Gap 8 mmol/L; Blood Urea Nitrogen 12 mg/dL (9-20); Calcium 8.9 mg/dL (8.4-10.2); Carbon Dioxide 23 mmol/L (22-30); Chloride 107 mmol/L (98-107); Glucose 84 mg/dL (74-99); Magnesium 1.7 mg/dL (1.6-2.3); Non-African American GFR(MDRD) >60 (>60 ml/min/1.73 sqM); Potassium 3.9 mmol/L (3.5-5.1); Sodium 138 mmol/L (137-145)
[2016-08-25] MEDS: Acetaminophen-Codeine 300-30mg TAB PO PRN ×2 (09:47→19:58)
--- NOTE | 2016-08-25 19:58 | P.PCN ---
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 Flaquita Vargas. General surgery consult at this time for drainage from the incision site in the right clavicle. There was a small opening along the right clavicle along the incision with spontaneous drainage of serosanguineous fluid. Description of Procedure: Approximately 100 mL of serosanguineous fluid was expressed through the already existing opening along the right clavicle incision. The seroma was drained and pressure dressing applied. Patient has metastatic squamous cell cancer and likely will develop recurrent fluid collection secondary to metastatic disease. Apply pressure dressing and change every 24 hrs. Patient has been expressing fluid out of this opening for several days on and off.
[2016-08-25] MEDS: LEVOFLOXACIN 500MG-D5W PMX 500 MG in DEXTROSE/WATER 1 100ML.BAG IVPB SCH (20:24)
--- NOTE | 2016-08-25 23:01 | P.DS ---
Providers Date of admission: 08/23/16 21:45 Expected date of discharge: 08/25/16 Attending physician: Emma Brut Consults: 08/23/16 21:46 Consult Physician Urgent Consulting Provider: Gurjit Valentin Consult Reason/Comments: bladder cancer Do you want consulting provider notified?: Yes Consult Physician Urgent Consulting Provider: Willian Jack Consult Reason/Comments: oncological care Do you want consulting provider notified?: Yes 08/25/16 13:06 Consult Physician Urgent Consulting Provider: Flaquita Vargas Consult Reason/Comments: right chest mass I/D Do you want consulting provider notified?: Yes Primary care physician: Coco Herrera [facility] Course: 60-year-old gentleman with a recent diagnosis of metastatic squamous cell of the bladder is admitted to the hospital after sustaining a mechanical fall. Patient currently has a Arthur catheter in place. Patient underwent a tumor resection under cystoscopy guidance recently. However, some degree of tumor was not resected hence patient has multiple episodes of urinary retention due to tumor clogging the Arthur catheter. Patient was noted to have an increased swelling in his right subclavicular region where patient initially underwent a biopsy for the cancer. A consultation for Dr. Patrick was placed on the day of discharge patient underwent another incision and drainage for comfort with removal of about 100 mL of fluid. Patient is recommended to continue with Arthur catheter. Patient is to start chemotherapy within the next week. Patient follows Dr. morgan on outpatient basis. Lungs good air entry clear to auscultation Chest wall large cystic mass is noted on the right clavicular area Heart S1 and S2 heart regular rate and rhythm Abdomen is soft nontender no organomegaly Arthur catheter is noted Neurologically no focal motor or sensory deficits noted. Discharge diagnoses #1 metastatic squamous cell cancer of the bladder #2 large cystic mass of the right clavicular region secondary to #1 #3 urinary retention secondary to #1 #4 chronic pain syndrome secondary to #1 #5 long-standing tobacco use Patient Condition at Discharge: Serious Plan - Discharge Summary Discharge Medication List Docusate [Colace] 100 mg PO BID #100 cap 08/11/16 [Rx] Polyethylene Glycol 3350 [Miralax] 17 gm PO DAILY #100 powd.pack 08/11/16 [Rx] Acetaminophen-Codeine 300-30mg [Tylenol w/codeine #3] 1 tab PO Q6HR PRN [History] Morphine Oral Soln [Roxanol Oral Soln Conc 20MG/ML] 20 mg PO Q3H PRN 08/20/16 [ History] Morphine Sulfate ER [Ms Contin] 30 mg PO Q12HR PRN 08/20/16 [History] Levofloxacin [Levaquin] 500 mg PO DAILY 5 Days 08/23/16 [Rx] Follow up Appointment(s)/Referral(s): Jeferson Morgan MD [STAFF PHYSICIAN] - 1 Week Coco Herrera MD [Primary Care Provider] - 1-2 days Activity/Diet/Wound Care/Special Instructions: Arthur instructions
[2016-08-26] MEDS: SODIUM CHLORIDE 0.9% 1,000 ML IV SCH ×2 (02:32→16:15)
[2016-08-26] MEDS: DOCUSATE 100 MG CAP PO SCH (07:46)
[2016-08-26 15:31] VITALS: BP 118/71; PULSE 112; RESP 16; TEMP 97.7
[2016-08-26] MEDS: Acetaminophen-Codeine 300-30mg TAB PO PRN (18:42)
--- NOTE | 2016-08-26 20:03 | P.DS ---
Providers Date of admission: 08/23/16 21:45 Expected date of discharge: 08/26/16 Attending physician: Emma Burt Consults: 08/23/16 21:46 Consult Physician Urgent Consulting Provider: Gurjit Valentin Consult Reason/Comments: bladder cancer Do you want consulting provider notified?: Yes Consult Physician Urgent Consulting Provider: Willian Jack Consult Reason/Comments: oncological care Do you want consulting provider notified?: Yes 08/25/16 13:06 Consult Physician Urgent Consulting Provider: Flaquita Vargas Consult Reason/Comments: right chest mass I/D Do you want consulting provider notified?: Yes Primary care physician: Coco Herrera Hospital Course: Hospital Course: 60-year-old gentleman with a recent diagnosis of metastatic squamous cell of the bladder is admitted to the hospital after sustaining a mechanical fall. Patient currently has a Arthur catheter in place. Patient underwent a tumor resection under cystoscopy guidance recently. However, some degree of tumor was not resected hence patient has multiple episodes of urinary retention due to tumor clogging the Arthur catheter. Patient was noted to have an increased swelling in his right subclavicular region where patient initially underwent a biopsy for the cancer. A consultation for Dr. Patrick was placed on the day of discharge patient underwent another incision and drainage for comfort with removal of about 100 mL of fluid. Patient is recommended to continue with Arthur catheter. Patient is to start chemotherapy within the next week. Patient follows Dr. morgan on outpatient basis. Lungs good air entry clear to auscultation Chest wall large cystic mass is noted on the right clavicular area Heart S1 and S2 heart regular rate and rhythm Abdomen is soft nontender no organomegaly Arthur catheter is noted Neurologically no focal motor or sensory deficits noted. Discharge diagnoses #1 metastatic squamous cell cancer of the bladder #2 large cystic mass of the right clavicular region secondary to #1 #3 urinary retention secondary to #1 #4 chronic pain syndrome secondary to #1 #5 long-standing tobacco use Patient Condition at Discharge: Serious Plan - Discharge Summary Discharge Medication List Docusate [Colace] 100 mg PO BID #100 cap 08/11/16 [Rx] Polyethylene Glycol 3350 [Miralax] 17 gm PO DAILY #100 powd.pack 08/11/16 [Rx] Acetaminophen-Codeine 300-30mg [Tylenol w/codeine #3] 1 tab PO Q6HR PRN [History] Morphine Oral Soln [Roxanol Oral Soln Conc 20MG/ML] 20 mg PO Q3H PRN 08/20/16 [ History] Morphine Sulfate ER [Ms Contin] 30 mg PO Q12HR PRN 08/20/16 [History] Levofloxacin [Levaquin] 500 mg PO DAILY 5 Days 08/23/16 [Rx] Follow up Appointment(s)/Referral(s): Jeferson Morgan MD [STAFF PHYSICIAN] - 1 Week Coco Herrera MD [Primary Care Provider] - 1-2 days Activity/Diet/Wound Care/Special Instructions: Arthur instructions Patient Condition at Discharge: Serious Plan - Discharge Summary Discharge Medication List Docusate [Colace] 100 mg PO BID #100 cap 08/11/16 [Rx] Polyethylene Glycol 3350 [Miralax] 17 gm PO DAILY #100 powd.pack 08/11/16 [Rx] Acetaminophen-Codeine 300-30mg [Tylenol w/codeine #3] 1 tab PO Q6HR PRN [History] Morphine Oral Soln [Roxanol Oral Soln Conc 20MG/ML] 20 mg PO Q3H PRN 08/20/16 [ History] Morphine Sulfate ER [Ms Contin] 30 mg PO Q12HR PRN 08/20/16 [History] Levofloxacin [Levaquin] 500 mg PO DAILY 5 Days 08/23/16 [Rx] Follow up Appointment(s)/Referral(s): Jeferson Morgan MD [STAFF PHYSICIAN] - 1 Week Coco Herrera MD [Primary Care Provider] - 1-2 days Patient Instructions/Handouts: Arthur Catheter Placement and Care (DC) Activity/Diet/Wound Care/Special Instructions: Arthur instructions Discharge Disposition: HOME WITH HOME HEALTH SERVICES
[2016-08-26] MEDS ORDERED: LEVOFLOXACIN 500 MG TAB PO SCH (21:00)
== END 2016-08-26 19:36 | disposition home health service (06) | DRG 988 ==
LOC: EC 18:26 → 4MS4W 21:45
PROVIDERS: ADMIT Internal Medicine; ATTEND Internal Medicine
PROC: 0J960ZZ Drainage of Chest Subcutaneous Tissue and Fascia, Open Approach (ICD-10-PCS; principal; 2016-08-25)
DX: R55 Syncope and collapse (principal); C79.51 Secondary malignant neoplasm of bone; R18.8 Other ascites; E44.0 Moderate protein-calorie malnutrition; M96.842 Postprocedural seroma of a musculoskeletal structure following a musculoskeletal system procedure; J44.9 Chronic obstructive pulmonary disease, unspecified; C67.9 Malignant neoplasm of bladder, unspecified; G89.3 Neoplasm related pain (acute) (chronic); D47.3 Essential (hemorrhagic) thrombocythemia; R33.9 Retention of urine, unspecified; E87.6 Hypokalemia; D64.9 Anemia, unspecified; F17.200 Nicotine dependence, unspecified, uncomplicated; F12.90 Cannabis use, unspecified, uncomplicated; E27.9 Disorder of adrenal gland, unspecified; K59.09 Other constipation; N42.9 Disorder of prostate, unspecified; R91.8 Other nonspecific abnormal finding of lung field; Z79.899 Other long term (current) drug therapy; Z80.42 Family history of malignant neoplasm of prostate; Y84.8 Other medical procedures as the cause of abnormal reaction of the patient, or of later complication, without mention of misadventure at the time of the procedure; W01.0XXA Fall on same level from slipping, tripping and stumbling without subsequent striking against object, initial encounter
CPT/HCPCS: 36415; 70470; 71020; 80048; 80053; 80299; 81001; 82550; 82553; 83605; 83735; 84132; 84484; 85025; 85610; 85730; 87040; 87086; 93005; 96361; 96365; 99285

== ENCOUNTER → 2016-09-17 | Outpatient (CLI) | payer OTHER ==
[~2016-09-17] MED LIST: SODIUM CHLORIDE 0.9% 250 ML in EMPTY BAG 1 BAG IV PRN; SODIUM CHLORIDE 0.9% 500 ML in EMPTY BAG 1 BAG IV PRN; ZOLEDRONIC ACID 4 MG in SODIUM CHLORIDE 0.9% 100 ML IV ONE
[2016-09-17 12:48] VITALS: BP 106/74; PULSE 109; RESP 18; TEMP 99.5
== END | disposition home or self-care (01) ==
LOC: PROCWHC3 11:47
PROVIDERS: ATTEND Internal Medicine Hematology & Oncology
DX: C67.9 Malignant neoplasm of bladder, unspecified (principal); E83.52 Hypercalcemia
CPT/HCPCS: 96365; J3489